=== PATIENT | male | born 1990 | race Caucasian/White ===

== ENCOUNTER 2018-07-21 11:02 | Emergency (ER) | payer OTHER ==
--- NOTE | 2018-07-21 11:28 | EDPHY ---
H & P Stated Complaint: hit L upper mid abd with hockey puck 1 wk ago still painful Time Seen by Provider: 07/21/18 11:17 HPI/ROS: CHIEF COMPLAINT: Abdominal pain post blunt hockey puck injury HISTORY OF PRESENT ILLNESS: 27-year-old male via private vehicle complaining of abdominal pain for the past 1 week after a hockey puck impacted his epigastrium. He has had continued pain. No chest pain. No dyspnea. No Nausea or vomiting. No melena hematochezia. No urinary abnormality. No genitalia injury REVIEW OF SYSTEMS: 10 systems reviewed and negative with the exception of the elements mentioned in the history of present illness PAST MEDICAL/SURGICAL HISTORY: no anticoagulant use, no relevant medical/ surgical history SOCIAL HISTORY: denies alcohol use at time of incident PHYSICAL EXAM 1) GENERAL: Well-developed, well-nourished, alert and oriented. Appears to be in no acute distress. Answering questions appropriately. 2) HEAD: Normocephalic, atraumatic 3) HEENT: Pupils equal, round, reactive to light bilaterally.. 4) NECK: . Posterior cervical spine is nontender, no stepoff, no effusion. Full range of motion which does not elicit any midline cervical spine pain, no posterior midline tenderness, no step-off. 5) LUNGS: Clear to auscultation bilaterally, no wheezes, no rhonchi, no retractions. No obvious signs of trauma. No chest wall pain. No flaring, no grunting. Moving symmetrically. No crepitus. 6) HEART: [Regular rate and rhythm, 7) ABDOMEN: Ecchymosis and tenderness to palpation left of midline in the epigastrium with associated tenderness. Soft compartments. No hematoma. 8) MUSCULOSKELETAL: Moving all extremities, no focal areas of tenderness, no obvious trauma. 9) BACK: No midline vertebral tenderness, no fluctuance, no step-off, no obvious trauma, no visual or palpable abnormality. 10) SKIN: No laceration. No abrasion DIFFERENTIAL DIAGNOSIS: In no particular order including but not limited to abdominal compartment syndrome, traumatic solid organ injury, abdominal wall hematoma, contusion - Medical/Surgical History Hx Asthma: No Hx Chronic Respiratory Disease: No Hx Diabetes: No Hx Cardiac Disease: No Hx Renal Disease: No Hx Cirrhosis: No Hx Alcoholism: No Hx HIV/AIDS: No Hx Splenectomy or Spleen Trauma: No Other PMH: denies - Social History Smoking Status: Never smoked Constitutional: Initial Vital Signs Temperature (C) 36.6 C 07/21/18 11:06 Heart Rate 60 07/21/18 11:06 Respiratory Rate 16 07/21/18 11:06 Blood Pressure 151/86 H 07/21/18 11:06 O2 Sat (%) 97 07/21/18 11:06 O2 Delivery Mode Room Air Allergies/Adverse Reactions: No Known Allergies Allergy (Unverified 07/21/18 11:05) Home Medications: Medication Instructions Recorded NK [No Known Home Meds] 07/21/18 ED Images - Male Images Male Torso Head Front/Back: 1 - Pain and ecchymosis Medical Decision Making - Diagnostics Imaging Results: Imaging Impressions Abdomen CT 07/21/18 11:25 Impression: Subcutaneous stranding left upper quadrant suggesting contusion with no acute intra-abdominal findings. Findings discussed with Em Ruiz 07/21/2018 at 12:30. Images reviewed myself ED Course/Re-evaluation: 11:20 a.m.: Will obtain CT imaging the abdomen and pelvis to evaluate solid organ injury. Indications risks benefits discussed with patient and he consents. Care of patient under supervision of secondary supervising physician Dr Smith . Re-evaluation after imaging results. Discussed his imaging results with him. No evidence of solid organ injury. Doubt abdominal compartment syndrome. Feels comfortable being discharged home. Given my usual and customary discharge precautions instructions. - Data Points Laboratory Results: 07/21/18 11:31 POC Hgb 15.6 gm/dL gm/dL (13.7-17.5) POC Hct 46 % % (40-51) POC Sodium 141 mEq/L mEq/L (135-145) POC Potassium 3.8 mEq/L mEq/L (3.3-5.0) POC Chloride 100 mEq/L mEq/L (97-110) POC BUN 14 mg/dL mg/dL (7-23) POC Creatinine 1.0 mg/dL mg/dL (0.7-1.3) POC Glucose 80 mg/dL mg/dL (70-100) Point of Care Test Results: Chemistry 07/21/18 11:31 POC Sodium 141 mEq/L mEq/L (135-145) POC Potassium 3.8 mEq/L mEq/L (3.3-5.0) POC Chloride 100 mEq/L mEq/L (97-110) POC BUN 14 mg/dL mg/dL (7-23) POC Creatinine 1.0 mg/dL mg/dL (0.7-1.3) POC Glucose 80 mg/dL mg/dL (70-100) ISTAT H&H 07/21/18 11:31 POC Hgb 15.6 gm/dL gm/dL (13.7-17.5) POC Hct 46 % % (40-51) Departure - Departure Disposition: Home, Routine, Self-Care Clinical Impression: Activity, ice hockey Blunt injury of abdomen Qualifiers: Encounter type: initial encounter Qualified Code(s): S39.81XA - Other specified injuries of abdomen, initial encounter Condition: Good Instructions: Contusion in Adults (ED) Additional Instructions: Return to the emergency department if you develop worsening pain, if you develop blood in your stool or any other symptoms that concern you Referrals: Ildefonso Duke MD [Medical Doctor] - 2-3 days, if not improved
[2018-07-21] MEDS ORDERED: IOPAMIDOL (ISOVUE-300) 100 ML BTL ONE (11:55)
[2018-07-21 13:13] VITALS: BP 138/84
== END 2018-07-21 13:13 | disposition home or self-care (01) ==
DX: S39.81XA Other specified injuries of abdomen, initial encounter (principal); W21.220A Struck by ice hockey puck, initial encounter; Y93.22 Activity, ice hockey
CPT/HCPCS: 82435-PO; 82565-PO; 82947-PO; 84132-PO; 84295-PO; 84520-PO; 85014-PO; Q9967